=== PATIENT | male | born 1950 | race Caucasian/White ===

== ENCOUNTER → 2019-03-10 | Outpatient (CLI) | payer MEDICARE, BC ==
[~2019-03-10] MED LIST: REMERON 15M15 MG/TA1 PO
== END ==
LOC: COL.RAD 08:00
DX: Z13.6 Encounter for screening for cardiovascular disorders (principal); F17.210 Nicotine dependence, cigarettes, uncomplicated

== ENCOUNTER → 2019-11-08 | Outpatient (CLI) | payer MEDICARE, BC | LOC: COL.RAD 07:14 | DX: N43.40 Spermatocele of epididymis, unspecified (principal) ==

== ENCOUNTER → 2021-03-27 | Outpatient (CLI) | payer MEDICARE, BC | LOC: COL.RAD 13:34 | DX: Z12.2 Encounter for screening for malignant neoplasm of respiratory organs (principal); Z87.891 Personal history of nicotine dependence ==

== ENCOUNTER → 2021-07-09 | Outpatient (CLI) | payer MEDICARE, BC | LOC: COL.RAD 12:53 | DX: Z12.2 Encounter for screening for malignant neoplasm of respiratory organs (principal); F17.210 Nicotine dependence, cigarettes, uncomplicated; R91.1 Solitary pulmonary nodule ==

== ENCOUNTER → 2022-07-11 | Outpatient (CLI) | payer MEDICARE, BC | LOC: COL.RAD 13:51 | DX: R91.8 Other nonspecific abnormal finding of lung field (principal); J43.9 Emphysema, unspecified ==